=== PATIENT | male | born 1965 | race Caucasian/White ===

== ENCOUNTER 2017-01-07 13:18 | Emergency (ER) | payer OTHER ==
[2017-01-07 13:24] VITALS: RESP 16
--- NOTE | 2017-01-07 13:43 | CPEKG ---
Heart Rate: 69 RR Interval: 870 P-R Interval: 156 QRSD Interval: 82 QT Interval: 388 QTC Interval: 416 P [place]: 84 QRS [place]: 77 T Wave [place]: 34 EKG Severity - BORDERLINE ECG - EKG Impression: SINUS RHYTHM EKG Impression: BORDERLINE R WAVE PROGRESSION, ANTERIOR LEADS Electronically Signed By: Lai Pimentel 07-Jan-2017 20:45:49
--- NOTE | 2017-01-07 13:47 | EDPHY ---
H & P Stated Complaint: dizzy, back pain wrapped to chest,, " i dont really feel right." - Personal History Current Tetanus/Diphtheria Vaccine: Yes Current Tetanus Diphtheria and Acellular Pertussis (TDAP): Yes - Medical/Surgical History Hx Asthma: No Hx Chronic Respiratory Disease: No Hx Diabetes: No Hx Cardiac Disease: No Hx Renal Disease: No Hx Cirrhosis: No Hx Alcoholism: No Hx HIV/AIDS: No Hx Splenectomy or Spleen Trauma: No Other PMH: pmh: multiple ortho inuries,. psh: none - Social History Smoking Status: Never smoked Time Seen by Provider: 01/07/17 13:30 HPI/ROS: Chief complaint: Dizzy, chest pain History of present illness: This is a 51-year-old male who presents to the emergency department with multiple complaints. Patient states yesterday while hiking he developed pain behind his ear back and the back of the left side of his neck and head. It is was a sharp pain that has resolved. However he subsequently developed pressure throughout his whole head that has persisted. He has became dizzy with this like he was going to pass out. Symptoms have persisted. He is concerned as today he has developed associated chest pain. He states the pain is on the left side of his chest and radiates from the back around towards the front. He denies precipitating factors other than the hike he was on yesterday. He denies alleviating factors. He denies other associated signs or symptoms including no fevers, no cough, no shortness of breath, no rash, no pain or swelling in the legs, no other neurologic symptoms such as paresthesias, weakness or paralysis or bowel or bladder dysfunction. Review of systems: A 10 point review of systems was obtained and other than described above was negative (Kareem Villasenor) - Physical Exam Exam: General Appearance: Alert, nontoxic. Eyes: Pupils equal and round no pallor or injection. ENT, Mouth: Mucous membranes moist. Respiratory: There are no retractions, lungs are clear to auscultation. Cardiovascular: Regular rate and rhythm. Gastrointestinal: Abdomen is soft and nontender, no masses, bowel sounds normal. Neurological: Alert and oriented x4. Cranial nerves 2-12 grossly intact. Strength and sensation intact and symmetrical. Skin: Warm and dry, no rashes. Musculoskeletal: Neck is supple nontender. Extremities are symmetrical, full range of motion. Psychiatric: Patient is oriented X 3, there is no agitation. (Kareem Villasenor) Constitutional: Initial Vital Signs Temperature (C) 36.5 C 01/07/17 13:21 Heart Rate 71 01/07/17 13:21 Respiratory Rate 16 01/07/17 13:21 Blood Pressure 138/86 H 01/07/17 13:21 O2 Sat (%) 96 01/07/17 13:21 O2 Delivery Mode Room Air Allergies/Adverse Reactions: No Known Allergies Allergy (Unverified 07/08/10 08:31) Home Medications: Medication Instructions Recorded None 07/29/09 Medical Decision Making - Diagnostics Imaging: Discussed imaging studies w/ call center professional Radiologist - Diagnostics Imaging Results: Imaging Impressions Chest/Thorax CTA 01/07/17 14:22 Impression: 1. No evidence of thrombopulmonary embolic disease. 2. Clear lungs. No pneumothorax or acute process. 3. No compression fracture or bone lesion. Findings discussed with Emergency Department physician, Kareem Villasenor PA-C on 01/07 at [address] 01/07/17 14:22 Impression: Normal brain. No intracranial hemorrhage or evidence of cortical ischemia. Findings discussed with Emergency Department physician early childhood assistant, SIMON Campbell on 01/07/2017 at 1503 hours. Head CTA 01/07/17 14:22 Impression: 1. Normal intracranial arterial circulation. No evidence of embolic disease or aneurysm. 2. Patent venous system. Findings discussed with Emergency Department physician, Kareem Villasenor PA-C on 01/07 at 1500 hours. Neck CTA 01/07/17 14:22 Impression: 1. Normal carotid and vertebral arteries. No dissection or occlusion. 2. No mass or bone lesion. Findings discussed with Emergency Department physician, Kareem Villasenor PA-C on 01/07 at 1500 hours. Measurement of carotid stenosis is based on the residual internal carotid diameter with [place] Symptomatic Carotid Endarterectomy Trial (NASCET) based stenosis levels. ED Course/Re-evaluation: Patient is seen in conjunction with my secondary supervising physician Dr. Lai Pimentel. Patient presents to the emergency department after he developed pain in the back of his head yesterday and a fullness in head with associated dizziness and now chest pain. On presentation he is nontoxic. Vital signs are stable. Blood studies and EKG unremarkable. Imaging studies for intracranial bleed, vascular dissection or pulmonary embolism are negative. Patient will get a 4 hour troponin and EKG to ensure no cardiac issue. If this is normal he will likely be discharged home to follow up with his primary care doctor for recheck. Care of patient is turned over to my attending physician Dr. Pimentel at end of shift. (Kareem Villasenor) EKG interpretation by me on record in [facility] (formerly [facility]) system. Impression time of EKG 17 50, repeat EKG sinus rhythm rate of 60, LVH present. Otherwise no acute ischemic change appreciated specifically no ST elevation, ST depression or significant T-wave abnormalities. Unremarkable EKG (Lai Pimentel) Differential Diagnosis: Included but not limited to headaches of multiple etiologies including migraine and tension, intracranial bleed, vascular disease including dissection and pulmonary embolism, cardiac disease including ACS, pneumothorax, pulmonary infections, anxiety, (Kareem Villasenor) - Data Points Laboratory Results: Laboratory Results 01/07/17 13:45 01/07/17 13:45 01/07/17 01/07/17 01/07/17 17:40 13:45 13:45 WBC RBC Hgb Hct MCV MCH MCHC RDW Plt Count MPV Neut % (Auto) Lymph % (Auto) [place] % (Auto) Eos % (Auto) Baso % (Auto) Nucleat RBC Rel Count Absolute Neuts (auto) Absolute Lymphs (auto) Absolute Monos (auto) Absolute Eos (auto) Absolute Basos (auto) Absolute Nucleated RBC Immature Gran % Immature Gran # D-Dimer < 0.27 ug/mLFEU ug/mLFEU (0.00-0.50) Sodium 136 mEq/L mEq/L (134-144) Potassium 4.1 mEq/L mEq/L (3.5-5.2) Chloride 103 mEq/L mEq/L (97-110) Carbon Dioxide 23 mEq/l mEq/l (22-31) Anion Gap 10 mEq/L mEq/L (8-16) BUN 16 mg/dL mg/dL (7-23) Creatinine 1.0 mg/dL mg/dL (0.7-1.3) Estimated GFR > 60 Glucose 117 mg/dL H mg/dL (70-100) Calcium 9.6 mg/dL mg/dL (8.5-10.4) Troponin I Pending < 0.012 ng/mL ng/mL (0-0.034) 01/07/17 13:45 WBC 5.72 10^3/uL 10^3/uL (3.80-9.50) RBC 5.12 10^6/uL 10^6/uL (4.40-6.38) Hgb 15.2 g/dL g/dL (13.7-17.5) Hct 44.1 % % (40.0-51.0) MCV 86.1 fL fL (81.5-99.8) MCH 29.7 pg pg (27.9-34.1) MCHC 34.5 g/dL g/dL (32.4-36.7) RDW 11.9 % % (11.5-15.2) Plt Count 221 10^3/uL 10^3/uL (150-400) MPV 11.2 fL fL (8.7-11.7) Neut % (Auto) 62.8 % % (39.3-74.2) Lymph % (Auto) 27.8 % % (15.0-45.0) Slope % (Auto) 7.2 % % (4.5-13.0) Eos % (Auto) 1.6 % % (0.6-7.6) Baso % (Auto) 0.3 % % (0.3-1.7) Nucleat RBC Rel Count 0.0 % % (0.0-0.2) Absolute Neuts (auto) 3.59 10^3/uL 10^3/uL (1.70-6.50) Absolute Lymphs (auto) 1.59 10^3/uL 10^3/uL (1.00-3.00) Absolute Monos (auto) 0.41 10^3/uL 10^3/uL (0.30-0.80) Absolute Eos (auto) 0.09 10^3/uL 10^3/uL (0.03-0.40) Absolute Basos (auto) 0.02 10^3/uL 10^3/uL (0.02-0.10) Absolute Nucleated RBC 0.00 10^3/uL 10^3/uL (0-0.01) Immature Gran % 0.3 % % (0.0-1.1) Immature Gran # 0.02 10^3/uL 10^3/uL (0.00-0.10) D-Dimer Sodium Potassium Chloride Carbon Dioxide Anion Gap BUN Creatinine Estimated GFR Glucose Calcium Troponin I Departure - Departure Disposition: Home, Routine, Self-Care Clinical Impression: Dizziness Chest pain Qualifiers: Chest pain type: unspecified Qualified Code(s): R07.9 - Chest pain, unspecified Condition: Good Instructions: Chest Pain (ED), Dizziness (ED) Additional Instructions: Follow-up with a primary care doctor for continued evaluation and care this week If symptoms worsen or new symptoms develop return to the emergency room for recheck Referrals: NONE *PRIMARY CARE P,. [Primary Care Provider] - As per Instructions Prerna Vargas MD [Medical Doctor] - As per Instructions
[2017-01-07 14:11] LABS: ANION GAP 10 mEq/L (8-16); CALCIUM 9.6 mg/dL (8.5-10.4); CARBON DIOXIDE 23 mEq/l (22-31); CHLORIDE 103 mEq/L (97-110); GLOMERULAR FILTRATION RATE > 60; GLUCOSE 117 mg/dL (70-100); POTASSIUM 4.1 mEq/L (3.5-5.2); SODIUM 136 mEq/L (134-144)
[2017-01-07 14:15] LABS: % IMMATURE GRANULYOCYTES 0.3 % (0.0-1.1); ABSOLUTE IMMATURE GRANULOCYTES 0.02 10^3/uL (0.00-0.10); ADD DIFF? NO; ADD MORPH? NO; ADD SCAN? NO; ATYPICAL LYMPHOCYTE FLAG 10 (0-99); FRAGMENT RBC FLAG 0 (0-99); HEMATOCRIT 44.1 % (40.0-51.0); HEMOGLOBIN 15.2 g/dL (13.7-17.5); LEFT SHIFT FLG 0 (0-99); LIPEMIA HEMOLYSIS FLAG 90 (0-99); MEAN CELL HEMOGLOBIN 29.7 pg (27.9-34.1); MEAN CELL HEMOGLOBIN CONCENTR. 34.5 g/dL (32.4-36.7); MEAN CELL VOLUME 86.1 fL (81.5-99.8); MEAN PLATELET VOLUME 11.2 fL (8.7-11.7); PLATELET CLUMPS FLAG 0 (0-99); PLATELET COUNT 221 10^3/uL (150-400); RED BLOOD CELL COUNT 5.12 10^6/uL (4.40-6.38); RED CELL DISTRIBUTION WIDTH 11.9 % (11.5-15.2)
[2017-01-07 14:22] LABS: TROPONIN I < 0.012 ng/mL (0-0.034)
[2017-01-07] MEDS ORDERED: IOPAMIDOL (ISOVUE 370) 100 ML BTL IV ONE (14:27)
--- NOTE | 2017-01-07 17:52 | CPEKG ---
Heart Rate: 60 RR Interval: 1000 P-R Interval: 164 QRSD Interval: 82 QT Interval: 412 QTC Interval: 412 P [place]: 81 QRS [place]: 81 T Wave [place]: 50 EKG Severity - ABNORMAL ECG - EKG Impression: SINUS RHYTHM EKG Impression: LEFT VENTRICULAR HYPERTROPHY Electronically Signed By: Lai Pimentel 07-Jan-2017 20:45:49
[2017-01-07 18:44] VITALS: BP 128/61; PULSE 66; TEMP 98.2; O2SAT 96
== END 2017-01-07 18:15 | disposition home or self-care (01) ==
DX: R42 Dizziness and giddiness (principal); R07.9 Chest pain, unspecified
CPT/HCPCS: Q9967

== ENCOUNTER 2018-03-31 16:09 | Emergency (ER) | payer OTHER ==
[2018-03-31 16:13] VITALS: BP 147/82
[2018-03-31] MEDS ORDERED: METOCLOPRAMIDE 10 MG TAB PO ONE (16:39)
--- NOTE | 2018-03-31 16:39 | EDPHY ---
H & P Stated Complaint: headache for 6 days Time Seen by Provider: 03/31/18 16:21 HPI/ROS: CHIEF COMPLAINT: Headache HISTORY OF PRESENT ILLNESS: The patient is a 52-year-old healthy man with recurrent headaches for the last 6 days. He states that they are worse at night man and tend to improve during the day. They improve with exercise. He has noticed that they get worse with deep inspiration but not quite as bad if he plugs his right nostril during deep inspiration. It is primarily to the right parietal area of his head and there is a slight tenderness to his scalp. No erythema rash. No trauma. No fevers. No neck pain or stiffness. No sinus congestion. No sore throat. He states the pain actually improved a little bit if he bends his neck forward. He had CT head and angiogram a year ago that he reports were normal. Also normal MRI at that time for similar type headaches. He states that this is not the worst headache of his life. No rashes recent tick bites. No vision or hearing changes. No dizziness or vertigo. No nausea vomiting or seizure-like activity. 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 He has not tried taking any medications at home. He has also cut down on his caffeine use today to see if this helps. Severity: Moderate Modifying factors: Above REVIEW OF SYSTEMS: Constitutional: denies: chills, fever, recent illness, recent injury EENTM: denies: blurred vision, double vision, nose congestion Respiratory: denies: cough, shortness of breath Cardiac: denies: chest pain, irregular heart rate, lightheadedness, palpitations Gastrointestinal/Abdominal: denies: abdominal pain, diarrhea, nausea, vomiting, blood streaked stools Genitourinary: denies: dysuria, frequency, hematuria, pain Musculoskeletal: denies: joint pain, muscle pain Skin: denies: lesions, rash, jaundice, bruising Neurological: See HPI denies: numbness, paresthesia, tingling, dizziness, weakness Hematologic/Lymphatic: denies: blood clots, easy bleeding, easy bruising Immunologic/allergic: denies: HIV/AIDS, transplant 10 systems reviewed and negative except as noted EXAM: GENERAL: Well-appearing, well-nourished and in no acute distress. HEAD: Atraumatic, normocephalic. EYES: Pupils equal round and reactive to light, extraocular movements intact, sclera anicteric, conjunctiva are normal. ENT: TMs normal, nares patent, oropharynx clear without exudates. Moist mucous membranes. NECK: Normal range of motion, supple without lymphadenopathy or JVD. LUNGS: Breath sounds clear to auscultation bilaterally and equal. No wheezes rales or rhonchi. HEART: Regular rate and rhythm without murmurs, rubs or gallops. ABDOMEN: Soft, nontender, normoactive bowel sounds. No guarding, no rebound. No masses appreciated. BACK: No CVA tenderness, no spinal tenderness, step-offs or deformities EXTREMITIES: Normal range of motion, no pitting or edema. No clubbing or cyanosis. NEUROLOGICAL: Cranial nerves II through XII grossly intact. Normal speech, normal gait. 5/5 strength, normal movement in all extremities, normal sensation , normal reflexes PSYCH: Normal mood, normal affect. SKIN: Warm, dry, normal turgor, no visible rashes or lesions. Source: Patient Exam Limitations: No limitations - Medical/Surgical History Hx Asthma: No Hx Chronic Respiratory Disease: No Hx Diabetes: No Hx Cardiac Disease: No Hx Renal Disease: No Hx Cirrhosis: No Hx Alcoholism: No Hx HIV/AIDS: No Hx Splenectomy or Spleen Trauma: No Other PMH: pmh: multiple ortho inuries,. psh: none - Family History Significant Family History: No pertinent family hx - Social History Smoking Status: Never smoked Alcohol Use: Sober Drug Use: None Constitutional: Initial Vital Signs Temperature (C) 36.6 C 03/31/18 16:11 Heart Rate 77 03/31/18 16:11 Respiratory Rate 18 03/31/18 16:11 Blood Pressure 147/82 H 03/31/18 16:11 O2 Sat (%) 96 03/31/18 16:11 O2 Delivery Mode Room Air Allergies/Adverse Reactions: No Known Allergies Allergy (Verified 03/31/18 16:11) Home Medications: Medication Instructions Recorded None 07/29/09 Metoclopramide [Reglan 10 mg tab 10 mg PO BID PRN #10 tab 03/31/18 (RX)] Medical Decision Making ED Course/Re-evaluation: Patient has a moderate headache that is not the worst of his life. No fever or neck stiffness. No claudication. He has had previous studies that show no aneurysm or dissection type history. He would like to avoid radiation was wanting to get an MRI to evaluate for tumors although he had a normal one 1 year ago. We discussed risks and benefits of imaging at this time agreed not to perform imaging. He would also not like to do a lumbar puncture. He has not really tried any medications at home yet. He states he also has not been sleeping very well because the headache. I encouraged him to try NSAIDs and caffeine and will give him a trial of Reglan as well. He does not want to have the medication here but would prefer to take at home. Differential Diagnosis: Partial list of the Differential diagnosis considered include but were not limited to; tension headache, migraine and although unlikely based on the history and physical exam, I also considered hemorrhage, dissection, aneurysm, tumor, seizure, infection, temporal arteritis. I discussed these differential diagnoses and the plan with the patient as well as the usual and expected course. The patient understands that the diagnosis is provisional and that in medicine we are not always correct and that further workup is often warranted. Usual and customary warnings were given. All of the patient's questions were answered. The patient was instructed to return to the emergency department should the symptoms at all worsen or return, otherwise to followup with the physician as we discussed. - Data Points Medications Given: Discontinued Medications Metoclopramide HCl (Reglan) 10 mg PO EDNOW ONE Stop: 03/31/18 16:40 Last Admin: 03/31/18 16:43 Dose: 10 mg Departure - Departure Disposition: Home, Routine, Self-Care Clinical Impression: Recurrent headache Condition: Fair Instructions: Metoclopramide (By mouth), Acute Headache (ED) Referrals: Debbie Mcdonald MD [Primary Care Provider] - As per Instructions Prescriptions: Metoclopramide [Reglan 10 mg tab (RX)] 10 mg PO BID PRN #10 tab PRN Reason: Headache
== END 2018-03-31 16:52 | disposition home or self-care (01) ==
DX: R51 Headache (principal)

== ENCOUNTER → 2018-05-30 | Outpatient (CLI) | payer OTHER ==
[~2018-05-30] MED LIST: GADOBUTROL 10 ML VIAL IVP ONE
== END ==
LOC: FIMAGING 14:40
PROVIDERS: ATTEND Psychiatry & Neurology Neurology
DX: R51 Headache (principal)
CPT/HCPCS: A9585